=== PATIENT | female | born 1955 ===

== ENCOUNTER 2022-05-26 19:24 | Inpatient (IN) | payer OTHER, SELFPAY ==
[2022-05-26 22:34] VITALS: BMI 26.8
[2022-05-26] MEDS ORDERED: TETANUS, DIPHTHERIA TOX,ADULT (TDVAX) 0.5 ML VIAL IM ONE (22:39)
[2022-05-26] MEDS ORDERED: Ondansetron PF 4 MG/2 ML Vial IVP PRN (22:39)
[2022-05-26] MEDS ORDERED: hydrALAZINE 20 MG/ML VIAL SLOW IVP PRN (22:39)
[2022-05-26] MEDS ORDERED: Morphine 4 MG/ML VIAL SLOW IVP PRN (22:43)
[2022-05-26] MEDS ORDERED: Cyclobenzaprine 10 MG TAB PO PRN (22:43)
[2022-05-26] MEDS ORDERED: Sodium Chloride 0.9% 1,000 ML IV SCH (22:45)
[2022-05-26] MEDS ORDERED: Morphine 4 MG/ML VIAL ONE (22:56)
[2022-05-26] MEDS ORDERED: Morphine 4 MG/ML VIAL SLOW IVP SCH (23:45)
[2022-05-26] MEDS: Acetaminophen 500 MG TAB PO SCH (23:46)
[2022-05-26] MEDS: traMADol HCl 50 MG TAB PO SCH (23:47)
[2022-05-27 05:57] LABS: #Monocytes 0.4 thou/uL (0.11-0.59); #Neutrophils 1.9 thou/uL (1.40-6.50); %Basophils 0.6 % (0.0-1.0); %Eosinophils 1.2 % (0.0-10.0); %Lymphocytes 29.5 % (21.0-51.0); %Monocytes 12.1 % (0.0-10.0); %Neutrophils 56.5 % (42.0-75.0); Hemoglobin 11.5 g/dL (12.0-16.0); Mean Corpuscular HGB CONC 31.2 g/dL (32.0-36.0); Mean Corpuscular Hemoglobin 31.1 pg (27.0-31.0); Mean Corpuscular Volume 99.6 fl (78.0-98.0); Mean Platelet Volume 7.2 fL (7.4-10.4); Platelet Count 199 thou/uL (130-400); RBC Distribution Width 13.2 % (11.5-14.5); Red Blood Cell (RBC) Count 3.71 mill/uL (4.20-5.40); White Blood Cell (WBC) Count 3.4 thou/uL (4.8-10.8)
[2022-05-27 06:08] LABS: INR-International Normal Ratio 1.1; PTT 30.2 sec (22.9-36.1); Prothrombin Time 14.3 sec (12.0-14.7)
[2022-05-27] MEDS: Acetaminophen 500 MG TAB PO SCH ×3 (06:12→18:20)
[2022-05-27] MEDS: traMADol HCl 50 MG TAB PO SCH ×3 (06:12→18:20)
[2022-05-27 06:18] LABS: Anion Gap 10 mmol/L (10-20); BUN (Urea Nitrogen) 20 mg/dL (9.8-20.1); Calc. Creatinine Clearance 109 mL/min (70-130); Calcium 8.5 mg/dL (7.8-10.44); Carbon Dioxide 26 mmol/L (23-31); Chloride 109 mmol/L (98-107); Estimated GFR 96; Glucose 90 mg/dL (80-115); Magnesium 1.8 mg/dL (1.6-2.6); Phosphorus 3.4 mg/dL (2.3-4.7); Potassium 3.9 mmol/L (3.5-5.1); Sodium 141 mmol/L (136-145)
[2022-05-27] MEDS ORDERED: Morphine 4 MG/ML VIAL SLOW IVP PRN (08:08)
[2022-05-27] MEDS ORDERED: Magnesium 2 GM/50 ML(in water) 2 GM in Premix Bag 1 BAG IVPB SCH (08:15)
[2022-05-27] MEDS ORDERED: Diclofenac Sodium 50 MG DR TAB PO SCH (09:00)
[2022-05-27] MEDS: PHOS-NAK 1 PKT PACK PO SCH ×2 (09:28→09:31)
[2022-05-27] MEDS: Senokot S 8.6-50 MG TAB PO SCH ×2 (09:28→21:34)
[2022-05-27] MEDS: Famotidine/PF 20 mg/2ml Vial SLOW IVP SCH ×2 (09:28→21:34)
[2022-05-27] MEDS: Polyethylene Glycol 3350 17 GM Packet PO SCH ×2 (09:28→09:31)
[2022-05-27] MEDS: Entacapone 200 mg Tablet PO SCH ×4 (09:38→21:35)
[2022-05-27] MEDS: Carbidopa/Levodopa 25-100 mg Tablet PO SCH ×4 (09:38→21:34)
[2022-05-27] MEDS ORDERED: CEFAZOLIN 2 GM in Sodium Chloride 0.9% 100 ML IVPB SCH (10:15)
[2022-05-27] MEDS ORDERED: fentaNYL Citrate/PF 100 MCG/2 ML SYRINGE ONE (13:30)
[2022-05-27] MEDS ORDERED: Sodium Chloride 0.9% 100 ML ONE (13:54)
[2022-05-27] MEDS ORDERED: CEFAZOLIN 2 GM VIAL ONE (13:54)
[2022-05-27] MEDS ORDERED: Metoclopramide HCl 10 MG/2 ML VIAL ONE (14:22)
[2022-05-27] MEDS ORDERED: Ondansetron HCl/PF 4 MG/2 ML Vial IVP PRN (14:32)
[2022-05-27] MEDS ORDERED: Promethazine HCl 25 MG/ML VIAL IM PRN (14:32)
[2022-05-27] MEDS ORDERED: Promethazine HCl 25 MG/ML VIAL IVPB PRN (14:32)
[2022-05-27] MEDS ORDERED: Dexamethasone 20 MG/5 ML VIAL ONE (14:39)
[2022-05-27] MEDS ORDERED: PROPOFOL 200 MG/20 ML VIAL ONE (14:39)
[2022-05-27] MEDS ORDERED: Rocuronium Bromide 10 MG/ML (10ML VIAL) ONE (14:39)
[2022-05-27] MEDS ORDERED: Ondansetron PF 4 MG/2 ML Vial ONE (14:39)
[2022-05-27] MEDS ORDERED: Glycopyrrolate 0.2 MG/ML 5 ML SYRINGE ONE (14:39)
[2022-05-27] MEDS ORDERED: NEOSTIGMINE 3 MG/3 ML SYR 3 MG/3 ML SYRINGE ONE (14:39)
[2022-05-27] MEDS ORDERED: FENTANYL 50 MCG/ML VIAL 50 MCG/ML VIAL ONE (16:53)
[2022-05-27] MEDS: CEFAZOLIN 2 GM in Sodium Chloride 0.9% 100 ML IVPB SCH (21:33)
[2022-05-27] MEDS: traMADol HCl 50 MG TAB PO PRN (21:33)
[2022-05-27] MEDS: Carbidopa/Levodopa CR 50-200 mg Tablet PO SCH (21:34)
[2022-05-28] MEDS: Acetaminophen 500 MG TAB PO SCH ×4 (00:24→17:24)
[2022-05-28] MEDS: traMADol HCl 50 MG TAB PO SCH ×4 (00:25→17:23)
[2022-05-28] MEDS: CEFAZOLIN 2 GM in Sodium Chloride 0.9% 100 ML IVPB SCH ×2 (05:28→13:08)
[2022-05-28] MEDS: Entacapone 200 mg Tablet PO SCH ×4 (05:32→20:41)
[2022-05-28] MEDS: Carbidopa/Levodopa 25-100 mg Tablet PO SCH ×4 (05:32→20:41)
[2022-05-28 06:23] LABS: #Lymphocytes 0.6 thou/uL (1.20-3.40); #Monocytes 0.5 thou/uL (0.11-0.59); #Neutrophils 6.3 thou/uL (1.40-6.50); %Basophils 0.1 % (0.0-1.0); %Eosinophils 0.3 % (0.0-10.0); %Lymphocytes 7.9 % (21.0-51.0); %Monocytes 6.7 % (0.0-10.0); Hemoglobin 11.8 g/dL (12.0-16.0); Mean Corpuscular HGB CONC 30.9 g/dL (32.0-36.0); Mean Corpuscular Hemoglobin 30.9 pg (27.0-31.0); Mean Corpuscular Volume 99.9 fl (78.0-98.0); Platelet Count 208 thou/uL (130-400); RBC Distribution Width 13.2 % (11.5-14.5); Red Blood Cell (RBC) Count 3.82 mill/uL (4.20-5.40); White Blood Cell (WBC) Count 7.5 thou/uL (4.8-10.8)
[2022-05-28 06:40] LABS: Anion Gap 12 mmol/L (10-20); BUN (Urea Nitrogen) 14 mg/dL (9.8-20.1); Calc. Creatinine Clearance 106 mL/min (70-130); Calcium 8.5 mg/dL (7.8-10.44); Carbon Dioxide 25 mmol/L (23-31); Chloride 105 mmol/L (98-107); Estimated GFR 95; Glucose 107 mg/dL (80-115); Magnesium 1.9 mg/dL (1.6-2.6); Phosphorus 2.9 mg/dL (2.3-4.7); Potassium 4.2 mmol/L (3.5-5.1); Sodium 138 mmol/L (136-145)
[2022-05-28] MEDS: traMADol HCl 50 MG TAB PO PRN (09:18)
[2022-05-28] MEDS: Aspirin 81 mg Enteric Coated Tablet PO SCH ×2 (09:19→20:40)
[2022-05-28] MEDS: Famotidine 20 MG TAB PO SCH ×2 (09:20→20:41)
[2022-05-28] MEDS: Polyethylene Glycol 3350 17 GM Packet PO SCH (09:20)
[2022-05-28] MEDS: Senokot S 8.6-50 MG TAB PO SCH ×2 (09:20→20:40)
[2022-05-28] MEDS: Ibuprofen 200 MG TAB PO SCH ×2 (13:04→19:12)
[2022-05-28] MEDS: Carbidopa/Levodopa CR 50-200 mg Tablet PO SCH (20:40)
[2022-05-29] MEDS: traMADol HCl 50 MG TAB PO SCH ×3 (00:22→12:02)
[2022-05-29] MEDS: Acetaminophen 500 MG TAB PO SCH ×3 (00:22→12:02)
[2022-05-29] MEDS: Ibuprofen 200 MG TAB PO SCH ×2 (01:26→08:46)
[2022-05-29] MEDS: Entacapone 200 mg Tablet PO SCH ×2 (05:28→12:02)
[2022-05-29] MEDS: Carbidopa/Levodopa 25-100 mg Tablet PO SCH ×2 (05:29→12:03)
[2022-05-29 05:44] LABS: #Eosinphils 0.1 thou/uL (0.0-0.7); #Lymphocytes 1.3 thou/uL (1.20-3.40); #Monocytes 0.5 thou/uL (0.11-0.59); #Neutrophils 3.7 thou/uL (1.40-6.50); %Basophils 0.5 % (0.0-1.0); %Lymphocytes 22.7 % (21.0-51.0); %Monocytes 9.2 % (0.0-10.0); %Neutrophils 65.6 % (42.0-75.0); Hemoglobin 10.6 g/dL (12.0-16.0); Mean Platelet Volume 7.4 fL (7.4-10.4); Platelet Count 194 thou/uL (130-400); RBC Distribution Width 13.4 % (11.5-14.5); Red Blood Cell (RBC) Count 3.32 mill/uL (4.20-5.40); White Blood Cell (WBC) Count 5.7 thou/uL (4.8-10.8)
[2022-05-29] MEDS: Aspirin 81 mg Enteric Coated Tablet PO SCH (08:46)
[2022-05-29] MEDS: Famotidine 20 MG TAB PO SCH (08:46)
[2022-05-29] MEDS: Polyethylene Glycol 3350 17 GM Packet PO SCH (08:46)
[2022-05-29] MEDS: Senokot S 8.6-50 MG TAB PO SCH (08:46)
[2022-05-29 13:27] VITALS: BP 143/83; TEMP 98
== END 2022-05-29 15:00 | disposition home or self-care (01) | DRG 522 ==
LOC: SURG A 19:24 → OBSVTOIN 22:42
PROVIDERS: ADMIT Surgery; ATTEND Surgery
PROC: 0SRR0J9 Replacement of Right Hip Joint, Femoral Surface with Synthetic Substitute, Cemented, Open Approach (ICD-10-PCS; principal; 2022-05-27)
DX: S72.001A Fracture of unspecified part of neck of right femur, initial encounter for closed fracture (principal); G20 Parkinson's disease; W19.XXXA Unspecified fall, initial encounter; Y92.009 Unspecified place in unspecified non-institutional (private) residence as the place of occurrence of the external cause; Z98.890 Other specified postprocedural states
CPT/HCPCS: 36415; 71045; 72170; 80048; 83735; 84100; 85025; 85610; 85730; 93005; 93010; C1713; C1776; J1100; J2270; J2405; J2704; J2765; J3010; J3475; J3490; J7050; S0028